=== PATIENT | male | born 1975 | race Caucasian/White ===

== ENCOUNTER → 2022-05-23 | Day surgery (SDC) | payer BC ==
[~2022-05-23] MED LIST: CRESTOR10 MG PO; DEXAMETHASONE PHOS 24 MG/ML 10ML VIAL ONE; DYMISTA NASAL S23 GM INH; FENTANYL CITRATE/PF 100MCG/2 ML INJ ONE; LEXAPRO10 MG PO; MIDAZOLAM HCL 2 MG/2 ML VIAL ONE; MULTI-VITAMIN1 EACH PO; OMEGA 3 1,0001 EACH PO; ONDANSETRON HCL INJ 2MG/ML 2ML 2 MG/ML VIAL ONE; POVIDONE IODINE 0.05% 0.05 % ML PO ONE; PROPOFOL IV EMULSION 10 MG/ML 20 ML VIAL ONE; SEVOFLURANE INHAL SOLN 250 ML PEN BTL ONE
[2022-05-23 08:55] VITALS: BP 128/70
== END | disposition home or self-care (01) ==
LOC: OR 05:51
PROVIDERS: ATTEND Otolaryngology Otolaryngology/Facial Plastic Surgery
DX: H91.21 Sudden idiopathic hearing loss, right ear (principal); H93.13 Tinnitus, bilateral; G47.33 Obstructive sleep apnea (adult) (pediatric); G93.89 Other specified disorders of brain; I10 Essential (primary) hypertension; K21.9 Gastro-esophageal reflux disease without esophagitis; F17.210 Nicotine dependence, cigarettes, uncomplicated; Z79.899 Other long term (current) drug therapy
CPT/HCPCS: 69436; 93005; J2250; J2405; J2704; J3010